=== PATIENT | male | born 1970 | race African-American/Black ===

== ENCOUNTER → 2016-11-07 | Outpatient (CLI) | payer OTHER ==
--- NOTE | ~2016-11-07 | MR103 ---
[facility] A Service of [facility] RADIOLOGY TEXT RESULTS PATIENT: LAURITA CHURCH LOCATION: SRA : 74 UNIT #: [id number] AGE: [address]: Titus Grullon MD SEX: M ORDER DR: [id number] [address] [address] [id number] O MR#: [id number] Acc #: [id number] NAME: LAURITA CHURCH : 1970 SEX: M STUDY DATE/TIME: 11/07/2016 14:42 UNIT: [facility] ROOM: STUDY DESCRIPTION: MR Knee Wo Contrast Lt Attending Physician: Titus Grullon M.D. Referring Physician: Titus Grullon M.D. Ordering Physician: Thomas Pemberton M.D. Primary Care Physician: Thomas Pemberton M.D. MRI CENTER REPORT This report is preliminary unless electronic signature is present. EXAM MRI of the left knee without contrast HISTORY 46-year-old male complains of increasing left knee pain with some swelling and instability. Possible injury exercising and lifting weights in August. COMPARISON Left knee films 10/12/2016. FINDINGS Multiplanar, multiecho imaging was performed of the left knee utilizing a high field magnet and dedicated protocol. Examination demonstrates mild squaring of the tibial margins particularly involving the medial compartment compatible with early arthritic changes. Small knee effusion with mild synovitis particularly within the suprapatellar recess. Fluid distends the GS bursa with a small 4.5 cm popliteal cyst. Some extravasation of fluid above and below the cyst may represent recent cyst rupture. In the medial compartment, there is a complex tear involving the medial meniscus extending from the midbody segment into the posterior horn. This primarily represents a longitudinal oblique tear though there are also horizontal components. This extends to the tibial articular surface. The tear is estimated about 2 cm in length. Mild chondromalacia medial compartment. In the lateral compartment, the meniscus and articular cartilage appears intact. The patellofemoral compartment, patellar cartilage unremarkable. There is a 6.5 mm focus of moderate-grade chondromalacia medial femoral trochlea. Cruciate and collateral ligaments appear intact. There is some nonspecific edema superficial and deep to the MCL. Extensor mechanism STS. [facility] A Service of [facility] RADIOLOGY TEXT RESULTS PATIENT: LAURITA CHURCH LOCATION: SRAD : 74 UNIT #: [id number] AGE: [address]: Titus Grullon MD SEX: M ORDER DR: unremarkable. There is some mild thickening of the midportion of the MCL and 1 would question a grade 1 MCL sprain. Mild fluid and edema seen along the pes anserine tendons medial aspect of the knee. IMPRESSION 1. Complex tear medial meniscus extending from midbody segment into the posterior horn. Components of both longitudinal oblique and horizontal type tears. Tear estimated at least 2 cm in length. 2. Knee effusion with mild synovitis and a small popliteal cyst. 3. Mild thickening and increased signal and fluid superficial and deep to the MCL suggesting a grade 1 MCL sprain though this could all just be reactive due to adjacent meniscal and medial compartment pathology. There is also mild pes anserinus inflammation medial aspect of the knee. 4. Moderate grade chondromalacia medial femoral trochlea. Dictated by... Марина Couch M.D. THIS IS AN ELECTRONICALLY VERIFIED REPORT Марина Couch M.D. at 11/09/2016 7:30 AM VLAD/poppy TD: 11/08/2016 08:38 JOB #: [id number] MRI CENTER REPORT Page 1 of 1
== END | disposition home or self-care (01) ==
LOC: SRAD 14:34
DX: M25.461 Effusion, right knee (principal); S83.241A Other tear of medial meniscus, current injury, right knee, initial encounter; M65.88 Other synovitis and tenosynovitis, other site; M22.41 Chondromalacia patellae, right knee
CPT/HCPCS: 73721